=== PATIENT | male | born 1980 | race Caucasian/White ===

== ENCOUNTER 2019-04-19 18:45 | Observation (INO) ==
--- NOTE | 2019-04-19 19:23 | PROVIDER DOCUMENTATION ---
HPI-Chest Pain - General Chief Complaint: Chest Pain Stated Complaint: CHEST PAIN Time Seen by Provider: 04/19/19 19:12 Source: patient Allergies/Adverse Reactions: Patient Allergies Allergy/AdvReac Type Severity Reaction Status Date / Time Penicillins Allergy ANAPHYLAXIS Verified 04/19/19 21:00 Sulfa (Sulfonamide Allergy Unknown Verified 04/19/19 21:00 Antibiotics) - History of Present Illness-CP Nature of Presenting Problem: [id number] presents to the ER with c/o chest pain. 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 He denies any SOB or radiation. He states he has these episodes from "time to time" due to anxiety. He states he has been very "stressed out" from working 2 jobs. He denies any medical history, he is a smoker. Location: reports: central Chest Pain Radiation: reports: no radiation Severity in ED: moderate Onset/Duration: abrupt, just prior to arrival Timing: still present Associated Symptoms: reports: denies symptoms Similar Symptoms Previously?: Yes Recently Seen Here or By Another Healthcare Provider: No Review of Systems - Adult - REVIEW OF SYSTEMS - ADULT Constitutional: reports: see HPI. denies: chills, fever Eyes: reports: no symptoms reported Ears, Nose, Mouth & Throat: reports: no symptoms reported. denies: ear pain, epistaxis Cardiovascular: reports: see HPI, chest pain. denies: edema, orthopnea, palpitations, poor circulation, syncope Respiratory: reports: no symptoms reported. denies: cough, dyspnea on exertion, shortness of breath, wheezing Gastrointestinal: reports: no symptoms reported. denies: see HPI, constipation, nausea, vomiting Genitourinary: reports: no symptoms reported Musculoskeletal: reports: no symptoms reported. denies: back pain Integumentary: reports: no symptoms reported Neurological: reports: no symptoms reported. denies: dizziness/vertigo, seizure, syncope Psychiatric: reports: see HPI, anxiety, emotional problems, panic attacks Endocrine: reports: no symptoms reported Hematologic/Lymphatic: reports: no symptoms reported Allergic/Immunologic: reports: no symptoms reported All Other Systems: Reviewed and Negative Past History - Adult - PAST MEDICAL HISTORY-ADULT Review of Records: reports: Old Records Reviewed, Nursing Assessment Review, Medications Reviewed, Social history reviewed & non-contributory. Major Childhood Illnesses: reports: denies history Cardiovascular: reports: denies history Respiratory: reports: denies history Gastrointestinal: reports: denies history Obstetrical/Gynecological: reports: denies history Genitourinary: reports: denies history Musculoskeletal: reports: denies history Neurological: reports: denies history Psychiatric: reports: anxiety Endocrine/Immune: reports: denies history Other Conditions: reports: denies history - IMMUNIZATION STATUS Childhood Immunizations: See Nurse Assessment Flu Vaccine: See Nurse Assessment - FAMILY HISTORY Family History: reviewed, not pertinent - SOCIAL HISTORY Smoking: cigarettes, greater than 1 pack/day Provider spent 3-5 mins advising pt. on dangers of tobacco.: Discussed manners to quit use, and f/u contacts for add'l counseling. Substance Use: alcohol Alcohol Use Frequency: occasionally Living Situation: alone Physical Exam-General - PHYSICAL EXAM-ADULT Initial Vital Signs Reviewed: Yes - CONSTITUTIONAL General Appearance: alert, no apparent distress - EYES Eyes: PERRL/EOMI, pink conjunctivae - HEAD, EARS, NOSE, MOUTH & THROAT HENMT: normocephalic/atraumatic, moist mucous membranes, normal ENT inspection, TMs normal - NECK Neck: non-tender, full range of motion, supple, normal inspection - RESPIRATORY Respiratory: chest non-tender, lungs clear, normal breath sounds - CARDIOVASCULAR Cardiovascular: normal peripheral pulses, regular rate, rhythm - GASTROINTESTINAL (ABDOMEN) Abdominal Exam: normal bowel sounds, non tender, soft - LYMPHATIC Lymphatic: no adenopathy - MUSCULOSKELETAL Back Exam: normal inspection, no CVA tenderness, no vertebral tenderness Extremity: normal range of motion, non-tender, normal gait, normal inspection Peripheral Pulses: radial (R): 2+, radial (L): 2+, dorsalis-pedis (R): 2+, dorsalis-pedis (L): 2+ - SKIN Integumentary: normal color, normal turgor, warm/dry - 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, grossly normal, no motor/sensory deficits - PSYCHIATRIC Psych/Mental Status: oriented x 3, disheveled - HEART Score HEART Score: History: Moderately Suspicious HEART Score: ECG: Normal HEART Score: Age: < or = 45 Years HEART Score: Risk Factors for Atherosclerotic Disease: > or = 3 Risk Factors or History of Atherosclerotic Disease HEART Score: Troponin: < or = Normal Limit Total HEART Score:: 3 Progress - PLAN OF CARE/RESULTS Progress/Plan/Lab Results: Vital Signs - 8 hr 08/27/19 19:10 Temperature 98 F Pulse Rate 81 Respiratory Rate 18 Blood Pressure 136/92 O2 Sat by Pulse Oximetry 100 Laboratory Results - last 24 hr 04/19/19 04/19/19 04/19/19 19:03 19:03 19:03 WBC 9.04 RBC 5.27 Hgb 15.2 Hct 43.6 MCV 82.7 MCH 28.8 MCHC 34.9 RDW Std Deviation 12.6 Plt Count 252 MPV 11.5 H Immature Gran % (Auto) 0.6 H Neut % (Auto) 64.2 Lymph % (Auto) 28.5 [place] % (Auto) 5.3 Eos % (Auto) 1.1 Baso % (Auto) 0.3 Immature Gran # (Auto) 0.05 H Neut # (Auto) 5.80 Lymph # (Auto) 2.58 [place] # (Auto) 0.48 Eos # (Auto) 0.10 Baso # (Auto) 0.03 Sodium 128 L Potassium 3.7 Chloride 94 L Carbon Dioxide 21 L Anion Gap 13 BUN 14 Creatinine 0.7 Estimated GFR/1.73 m2 > 60 BUN/Creatinine Ratio 20 Glucose 421 H* Calculated Osmolality 276 Calcium 9.1 Total Bilirubin 0.32 AST 12 ALT 14 Alkaline Phosphatase 100 Creatine Kinase 76 Troponin T Total Protein 6.5 Albumin 3.9 Globulin 2.6 Albumin/Globulin Ratio 1.5 TSH Free T4 Urine Source Urine Color Urine Turbidity Urine pH Ur Specific [place] Urine Protein Ur Glucose (Stick) Ur Ketones (Stick) Urine Blood Urine Nitrite Urine Bilirubin Urobilinogen Dipstick Urine Leukocytes Urine WBC (Auto) Urine RBC (Auto) U Epithel Cells (Auto) Urine Bacteria (Auto) Urine Opiates Screen Ur Oxycodone Screen Ur Methadone, Qual Ur Barbiturates Screen Ur Phencyclidine Scrn Ur Amphetamines Screen U Benzodiazepines Scrn Urine Cocaine Screen U Cannabinoids Screen 04/19/19 04/19/19 04/19/19 19:03 19:03 20:35 WBC RBC Hgb Hct MCV MCH MCHC RDW Std Deviation Plt Count MPV Immature Gran % (Auto) Neut % (Auto) Lymph % (Auto) [place] % (Auto) Eos % (Auto) Baso % (Auto) Immature Gran # (Auto) Neut # (Auto) Lymph # (Auto) [place] # (Auto) Eos # (Auto) Baso # (Auto) Sodium Potassium Chloride Carbon Dioxide Anion Gap BUN Creatinine Estimated GFR/1.73 m2 BUN/Creatinine Ratio Glucose Calculated Osmolality Calcium Total Bilirubin AST ALT Alkaline Phosphatase Creatine Kinase Troponin T < 0.010 Total Protein Albumin Globulin Albumin/Globulin Ratio TSH 1.76 Free T4 0.86 L Urine Source CLEAN CATCH Urine Color YELLOW Urine Turbidity CLEAR Urine pH 5.5 Ur Specific Hum[place] 1.035 Urine Protein NEGATIVE Ur Glucose (Stick) >1000 A Ur Ketones (Stick) NEGATIVE Urine Blood NEGATIVE Urine Nitrite NEGATIVE Urine Bilirubin NEGATIVE Urobilinogen Dipstick NORMAL Urine Leukocytes NEGATIVE Urine WBC (Auto) <10 Urine RBC (Auto) <10 U Epithel Cells (Auto) <10 Urine Bacteria (Auto) NEGATIVE Urine Opiates Screen Ur Oxycodone Screen Ur Methadone, Qual Ur Barbiturates Screen Ur Phencyclidine Scrn Ur Amphetamines Screen U Benzodiazepines Scrn Urine Cocaine Screen U Cannabinoids Screen 04/19/19 20:56 WBC RBC Hgb Hct MCV MCH MCHC RDW Std Deviation Plt Count MPV Immature Gran % (Auto) Neut % (Auto) Lymph % (Auto) [place] % (Auto) Eos % (Auto) Baso % (Auto) Immature Gran # (Auto) Neut # (Auto) Lymph # (Auto) [place] # (Auto) Eos # (Auto) Baso # (Auto) Sodium Potassium Chloride Carbon Dioxide Anion Gap BUN Creatinine Estimated GFR/1.73 m2 BUN/Creatinine Ratio Glucose Calculated Osmolality Calcium Total Bilirubin AST ALT Alkaline Phosphatase Creatine Kinase Troponin T Total Protein Albumin Globulin Albumin/Globulin Ratio TSH Free T4 Urine Source Urine Color Urine Turbidity Urine pH Ur Specific Hum[place] Urine Protein Ur Glucose (Stick) Ur Ketones (Stick) Urine Blood Urine Nitrite Urine Bilirubin Urobilinogen Dipstick Urine Leukocytes Urine WBC (Auto) Urine RBC (Auto) U Epithel Cells (Auto) Urine Bacteria (Auto) Urine Opiates Screen NONE DETECTED Ur Oxycodone Screen NONE DETECTED Ur Methadone, Qual NONE DETECTED Ur Barbiturates Screen NONE DETECTED Ur Phencyclidine Scrn NONE DETECTED Ur Amphetamines Screen PRESUMPTIVE POSITIVE A U Benzodiazepines Scrn NONE DETECTED Urine Cocaine Screen NONE DETECTED U Cannabinoids Screen PRESUMPTIVE POSITIVE A Orders Category Date Time Status Nursing- Obtain EKG ONCE Care 04/19/19 19:16 Active CHEST-2 VIEWS [RAD] Stat Exams 04/19/19 19:16 Completed CBC WITH ELECTRONIC DIFF [HEME] Stat Lab 04/19/19 19:03 Completed CK PROFILE [SP CHEM] Stat Lab 04/19/19 19:03 Completed COMPREHENSIVE METABOLIC PANEL [CHEM] Stat Lab 04/19/19 19:03 Completed FREE T4 Stat Lab 04/19/19 19:03 Completed TROPONIN T Stat Lab 04/19/19 19:03 Completed TSH Stat Lab 04/19/19 19:03 Completed URINALYSIS W/POSS RFLX CULT [URINALYSIS] Stat Lab 04/19/19 20:35 Completed URINE DRUG SCREEN Stat Lab 04/19/19 20:56 Completed Insulin Human Regular [Humulin R] Med 04/19/19 20:36 Discontinued 4 unit SUBQ NOW ONE EKG [EKG] Stat Ther 04/19/19 19:16 Draft Mother at the bedside. 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 She also reports patient is non-insulin dependant diabetic. Records have been requested from [facility]. Result Diagrams: 04/19/19 19:03 04/19/19 19:03 - REASSESSMENT Reassessment #1 Time Reassessed: 20:39 Status: improving Reassessment Comment: no CP at present - EKG 1 Time of EKG reading by physician:: 18:57 EKG Read and Signed by:: Christian Reddy EKG Interpretation (*Must complete 3 of following elements*): Abnormal Rate: 83 Rhythm: NSR [place]: left QRS: other (Septal infarct, age undetermined) RI Interval: normal ST Wave: normal Prior EKG Comparison: no prior EKG - XRAY 1 XRAY Study: Chest Impression: Normal (FINDINGS: Heart size is normal. The lungs appear clear. There is no pleural effusion or pneumothorax identified. IMPRESSION: No evidence of acute disease.), See EMR Report - CONSULTS/PCP/HOSPITALIST Notification #1 *Consult/PCP/Hospitalist*: Dr Collado Time Discussed: 21:42 Reason/Comments: CP Consult Disposition: Admit Departure - Departure Date of Disposition Decision: 04/19/19 Time of Disposition Decision: 21:42 DIAGNOSIS: Chest pain Qualifiers: Chest pain type: unspecified Qualified Code(s): R07.9 - Chest pain, unspecified Disposition: ADMITTED INPATIENT 09 Certified Medical Emergency: Emergent Condition: Critical Additional Freetext Instructions: ED Follow Up Instructions: You have been treated by a care provider in the Emergency Department. These instructions are being provided to you so you can have an understanding of how to care for yourself upon discharge. Upon discharge from the Emergency Department, you are responsible for making arrangements for follow-up care by a physician of your choice. Take all prescribed medications as directed. Return to the Emergency Department immediately for any new or worsening symptoms. You may call the Physician Referral phone number at [phone] to obtain a list of Physicians who are taking new patients. Referrals and Follow-Ups: None,PCP [Primary Care Provider] - - Critical Care Note This patient required my direct & personal management of CC.: No Attestation - Physician/ FORD Attestation Patient care was provided by Advanced Practice Provider:: Yes Advanced Practice Provider:: Paul Cochran Advanced Practice Provider documentation review:: The Mid-level provider documentation, treatment plan and medical decision making was reviewed by the physician who agrees with all treatment and medical decision making by the MLP. The physician spent face to face time with patient:: No Advanced Practice Provider documentation review:: Supervising physician onsite and consulted in the evaluation and care of this patient. The physician did not have a face to face encounter with the patient.
--- NOTE | 2019-04-19 19:38 | Diag Imaging Result Doc PS360 ---
EXAM: CHEST-2 VIEWS - 04/19/2019 HISTORY: cp TECHNIQUE: Chest two views COMPARISON: None. FINDINGS: Heart size is normal. The lungs appear clear. There is no pleural effusion or pneumothorax identified. IMPRESSION: No evidence of acute disease. Electronically signed by Juan Decker 04/19/2019 7:35 PM
[2019-04-19 19:41] LABS: HEMATOCRIT 43.6 % (42.0-52.0); HEMOGLOBIN 15.2 g/dL (14.0-18.0); MCH 28.8 PG (27-31); MCV 82.7 FL (81-99); RBC 5.27 XMIL (4.7-6.1); WBC 9.04 X1000 (4.8-10.8)
[2019-04-19 19:42] LABS: BASO# 0.03 X1000 (0.0-0.2); BASO% 0.3 % (0.0-0.8); EOS% 1.1 % (0.0-10.0); IMM GRAN# 0.05 X1000 (0.0-0.04); IMM GRAN% 0.6 % (0.0-0.5); LYMPH# 2.58 X1000 (1.2-3.4); LYMPH% 28.5 % (20.5-51.1); MCHC 34.9 g/dL (33-37); MONO# 0.48 X1000 (0.11-0.59); MONO% 5.3 % (1.7-9.3); MPV 11.5 FL (7.4-10.4); NEUT% 64.2 % (42.2-75.2); PLT 252 X1000 (130-400); RDW 12.6 % (11.5-14.5)
--- NOTE | 2019-04-19 19:47 | EKG Report ---
Test Performed on : 04/19/2019 6:57:39 PM Test Reason : cp Blood Pressure : / mmHG Vent. Rate : 083 BPM Atrial Rate : 083 BPM P-R Int : 160 ms QRS Dur : 090 ms QT Int : 366 ms P-R-T Axes : 052 -40 037 degrees QTc Int : 430 ms Normal sinus rhythm. Left axis deviation Septal infarct , age undetermined Abnormal ECG No previous ECGs available Unconfirmed Result
[2019-04-19 20:34] LABS: FREE T4 0.86 ng/dL (0.93-1.70); TSH 1.76 uIUmL (0.27-4.20)
[2019-04-19] MEDS ORDERED: HUMULIN R SUBQ ONE (20:36)
[2019-04-19 20:38] LABS: AGAP 13; ALB/GLOB RATIO 1.5; ALBUMIN 3.9 g/dL (3.5-5.0); ALKALINE PHOSPHATASE 100 U/L (32-122); BUN 14 mg/dL (8-22); CALCIUM 9.1 mg/dL (8.8-10.2); CHLORIDE 94 mmol/L (98-107); COSMO 276; CREATININE 0.7 mg/dL (0.7-1.2); ESTIMATED GFR > 60; GLUCOSE 421 mg/dL (70-104); GOT 12 U/L (10-34); GPT 14 U/L (10-44); POTASSIUM 3.7 mmol/L (3.5-5.1); SODIUM 128 mmol/L (136-145); TCO2 21 mmol/L (25-35); TOTAL BILIRUBIN 0.32 mg/dL (0.20-1.00); TOTAL PROTEIN 6.5 g/dL (6.3-8.3)
[2019-04-19 20:43] LABS: URINE SOURCE CLEAN CATCH
[2019-04-19 20:45] LABS: BILIRUBIN URINE NEGATIVE (NEGATIVE); BLOOD URINE NEGATIVE (NEGATIVE); COLOR YELLOW; GLUCOSE URINE >1000 mg/dL (NEGATIVE); KETONE URINE NEGATIVE (NEGATIVE); LEUKOCYTES URINE NEGATIVE (NEGATIVE); NITRITE URINE NEGATIVE (NEGATIVE); PH URINE 5.5; PROTEIN URINE NEGATIVE (NEGATIVE); SP GRAVITY URINE 1.035; TURBIDITY URINE CLEAR (CLEAR); UR EPITHELIAL CELLS <10 /HPF (<10); URINE BACTERIA NEGATIVE /HPF; URINE RBC <10 /HPF (<10); URINE WBC <10 /HPF (<10); UROBILINOGEN URINE NORMAL (NORMAL)
[2019-04-19 21:21] LABS: UR AMPHETAMINES QUAL PRESUMPTIVE POSITIVE (NONE DETECT); UR BARBITUATES QUAL NONE DETECTED (NONE DETECT); UR BENZODIAZEPIN QUAL NONE DETECTED (NONE DETECT); UR CANNABINOIDS QUAL PRESUMPTIVE POSITIVE (NONE DETECT); UR COCAINE QUAL NONE DETECTED (NONE DETECT); UR METHADONE QUAL NONE DETECTED (NONE DETECT); UR OPIATES QUAL NONE DETECTED (NONE DETECT); UR OXYCODONE QUAL NONE DETECTED (NONE DETECT); UR PCP QUAL NONE DETECTED (NONE DETECT)
--- NOTE | 2019-04-19 22:37 | HISTORY AND PHYSICAL ---
REASON FOR ADMISSION: Chest pain. HISTORY OF PRESENT ILLNESS: Mr. Manuel Moss is a 38-year-old male with a past medical history of cocaine abuse resulting in an GA. He hails actually from [facility]. His mother brought him to [place] to keep away from the drug culture in [facility]. 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 He said the pain is stabbing radiating to back associated with shortness of breath and lightheadedness, but no diaphoresis, no palpitations. He admits to having some nausea. No cough. No antecedent history of cough, fever, chills, leg swelling, PND, or orthopnea. Since he has been in the ER, he says his pain has resolved. He had a similar episode 2 weeks ago and this spontaneously resolved in less than a day. He cannot say if the pain is associated with exertion but he knows it has been present for several hours regardless of exertion. REVIEW OF SYSTEMS: Twelve system review was done. Positive findings per HPI. Admits to using some marijuana and methamphetamines in the last couple of days. The patient admits to having polyuria and polydipsia. ALLERGIES: Allergic to sulfur and penicillin. HOME MEDICATIONS: Metformin even though the patient denies being a diabetic. SOCIAL HISTORY: Does not drink, but smokes about a pack a day. Uses marijuana amphetamines recreationally. FAMILY HISTORY: No first-degree relatives with diabetes or heart disease. SURGICAL HISTORY: Had appendectomy. LABORATORY WORK: EKG shows for possible Q-waves in V1 only, left axis deviation, normal sinus rhythm. Otherwise, no gross findings suggestive of ischemia or injury pattern. Chest film showed no acute disease noted. White count normal , platelets 252,000, glucose 421, BUN 14, creatinine 0.7. Positive for amphetamines and cannabinoids in the urine UDS. Urinalysis greater than 1000 glucose. Fortunately no protein. HOME MEDICATION: Only metformin 1000 mg b.i.d. is noted. PHYSICAL EXAMINATION: VITAL SIGNS: Blood pressure is 136/92, heart rate 81, respirations 18, temperature is 98 degrees, 100% on room air. GENERAL: A middle-aged man who is alert and oriented to person, time with normal mood and affect. HEENT: Head is normocephalic, atraumatic. Eyes, DILAN, EOMI. He is anicteric and not pale. ENT and oropharynx exam is grossly normal. NECK: Supple. No JVD or carotid bruit. No thyromegaly. CHEST: Clear to auscultation. Good air entry both lung bullock. CARDIOVASCULAR: First and 2nd sounds heard. No gallops, murmurs, rubs. Rhythm is regular. ABDOMEN: Full, soft, not tender. No mass or organomegaly. Bowel sounds are normal. RECTAL: Deferred at this time. EXTREMITIES: Good distal pulse volumes which are symmetrical, regular. No edema, clubbing or peripheral cyanosis. NEUROLOGIC EXAM: No gross focal deficits. SKIN: Intact. No breakdown, lesions, erythema. MUSCULOSKELETAL: Exam is grossly normal. ASSESSMENT: 1. Chest pain syndrome. 2. Type 2 diabetes, uncontrolled. 3. Polysubstance abuse. PLAN: We will keep patient NPO pending evaluation by Dr. Varner, radio engineering teacher lubrication equipment servicer. Echocardiogram was ordered. I will defer to him regarding need for noninvasive testing. The patient's heart score is somewhere around 3 to 4. We will continue aspirin. Start him on statins. Start him on insulin therapy for his poorly controlled diabetes. I strongly suspect the patient will need to go home on, at very least, 1 shot a day of long-acting insulin at the very least, or at least 70/30 insulin. A1c lipid panel needs to be followed. We will do serial cardiac enzymes to ensure the patient does not develop an ischemic event. cc: Alta Collado MD MTD
[2019-04-19] MEDS ORDERED: ZOFRAN IV PRN (23:48)
[2019-04-19] MEDS ORDERED: LIPITOR PO SCH (23:48)
[2019-04-19] MEDS ORDERED: TYLENOL PO PRN (23:48)
[2019-04-19] MEDS ORDERED: NITROGLYCERIN SL PRN (23:48)
[2019-04-19] MEDS ORDERED: LANTUS INSULIN SUBQ ONE (23:48)
[2019-04-19] MEDS ORDERED: NS 1,000 ML IV ONE (23:48)
[2019-04-20] MEDS: LOVENOX SUBQ SCH ×2 (00:13→02:10)
[2019-04-20] MEDS: HUMALOG SUBQ SCH ×4 (05:44→17:13)
[2019-04-20 05:59] LABS: CHOLESTEROL 184 mg/dL (0-200); HDL 35 mg/dL (35-55); LDL 72 mg/dL; TRIGLYCERIDES 385 mg/dL (39-160); VLDL 77 mg/dL
[2019-04-20] MEDS ORDERED: PRILOSEC PO SCH (07:00)
--- NOTE | 2019-04-20 07:21 | EKG Report ---
Test Performed on : 04/20/2019 06:22:58 AM Test Reason : CP Blood Pressure : / mmHG Vent. Rate : 074 BPM Atrial Rate : 074 BPM P-R Int : 162 ms QRS Dur : 098 ms QT Int : 386 ms P-R-T Axes : 060 -32 042 degrees QTc Int : 428 ms Normal sinus rhythm. Left axis deviation Incomplete right bundle branch block Abnormal ECG When compared with ECG of 19-APR-2019 18:57, (Unconfirmed) No significant change was found Confirmed by Cheryl Bañuelos MD ([id number]) on 04/20/2019 12:02:35 PM
[2019-04-20] MEDS ORDERED: LANTUS INSULIN SUBQ SCH (09:00)
[2019-04-20] MEDS ORDERED: ASPIRIN PO SCH (09:00)
--- NOTE | 2019-04-20 09:00 | PROGRESS NOTE ---
DATE: 04/20/2019 SUBJECTIVE: Mr. Moss had a pretty good night. No further chest pain. He described the pain as on the right side and more sharp in nature. OBJECTIVE: Temperature 97.9 degrees, pulse 83, respirations 18, blood pressure 139/82. Pupils are equal and round. Lungs are clear in all lung bullock. Cardiovascular Examination: Regular rhythm and rate without murmur or S3. Abdomen is soft. Skin is warm and dry. ASSESSMENT AND PLAN: 1. Chest pain. History, he says, of a myocardial infarction a couple of years ago. Dr. Varner is his glue spreading machine operator. Echocardiogram was ordered and he will determine the need for noninvasive testing. 2. Diabetes mellitus type 2. 3. History of polysubstance abuse. 4. He is on Lipitor 40 mg at bedtime, aspirin 325 mg a day, Lantus insulin 25 units subcutaneous daily, getting normal saline at 150 mL an hour. Note, his cardiac enzymes are negative. Troponin less than 0.01, two sets. Hemoglobin A1c was 12, indicating that the control has been poor so we will follow pattern of sugars while he is here. cc: Hilario Tran MD
--- NOTE | 2019-04-20 11:28 | CARDIOLOGY CONSULTATION ---
DATE: 04/20/2019 REASON FOR CONSULTATION: Cardiology was consulted for chest pain. HISTORY OF PRESENT ILLNESS: A 38-year-old, gentleman with past medical history of cocaine abuse. He hails from [place], [place]. He was brought in by his mother back to [place]. Patient comes with complaints of having chest pain, which he describes as stabbing in character associated with some shortness of breath and lightheadedness. There is no jodi syncope. REVIEW OF SYSTEM: General: A 14 point review of systems was done. Gastrointestinal: There is no history of nausea, vomiting, diarrhea. There is no history of hematemesis or melena. Central nervous system: No focal weakness to suggest a CVA or TIA. Genitourinary system: There is no dysuria or hematuria. PAST MEDICAL HISTORY: History of cocaine abuse. The patient states that resulted in a MO; no records available at the present time. HOME MEDICATIONS: Metformin; patient says he is not a diabetic. SOCIAL HISTORY: Patient does not drink. History of using recreational marijuana and cocaine in the past. PHYSICAL EXAMINATION: Vital Signs: On examination, blood pressure was 136/92. Cardiovascular System: Normal jugular venous pressure. There is no thyromegaly. No carotid bruit. First and second heart sounds were heard. There is no S3, S4, or gallop. Respiratory System: Normal air entry. There is no crepitations or rhonchi. Abdomen: Soft, nontender. There was no guarding or rigidity. Bowel sounds were heard. Central nervous system: Alert and oriented. Was moving all 4 extremities. Extremities: Examination of extremities revealed no pedal edema. HEENT: Atraumatic, normocephalic. Pupils were equal and reacting to light. ASSESSMENT AND PLAN: Mr. Manuel Moss is a 38-year-old, gentleman with history of drug abuse in the past. He comes in with complaints of chest pain. He has been ruled out for myocardial infarction by cardiac enzymes. We will get an echocardiogram to assess cardiac and valvular function. We will get a Cardiolite stress test to assess for and rule out ischemia. As far as diabetes and blood sugars are concerned, will defer plan by the hospitalist service. Thank you for the consult. We will follow hospital course. cc: Alex Grajeda MD
--- NOTE | 2019-04-20 15:04 | Diag Imaging Result Document ---
PROCEDURE NAME: MYOCARDIAL PERF SCAN, STR/REST - 04/20/2019 INDICATION: Chest pain. PROCEDURES PERFORMED: 1. Rafiq protocol stress. 2. One-day stress rest myocardial perfusion imaging. PROCEDURE IN DETAIL: Mr. Moss was brought to the nuclear laboratory and had a resting study with injection of 10.9 mCi of technetium-99m sestamibi with the usual imaging protocol utilized. He subsequently was brought back and had a Rafiq protocol stress, and at peak stress had injection of 31.5 mCi of technetium-99m sestamibi with the usual imaging protocol utilized. FINDINGS: RAFIQ PROTOCOL STRESS RESULTS: 1. Baseline EKG shows sinus rhythm, poor R-wave progression. 2. The patient exercised for a total of 10-1/2 minutes, achieving peak heart rate of 160, which was 87% of age-predicted max. He achieved 12.5 METS and stage IV of the Rafiq protocol. Exercise capacity was 93% of age and sex-predicted exercise capacity. 3. Appropriate blood pressure response to exercise. 4. Test was terminated due to fatigue. 5. No anginal complaints occurred during the course of the study. 6. No ischemic-related EKG changes or significant arrhythmias. PERFUSION IMAGING RESULTS: 1. No evidence of transient ischemic dilatation. TID ratio is 1.09. 2. There is evidence of abnormal extracardiac uptake on the rest images, which appears to be contamination on the gown in the chest wall area. 3. Perfusion imaging demonstrates a small-sized, mild intensity, fixed defect at the apex, likely suggestive of apical thinning artifact. There is no evidence of ischemic-related changes. 4. Normal ejection fraction of 71%. End-diastolic volume 86. End-systolic volume 25. Normal wall motion. cc: MD Clara Stockton PA
[2019-04-20 15:20] VITALS: BP 134/77
--- NOTE | 2019-04-20 16:04 | DISCHARGE SUMMARY ---
ADMISSION DATE: 04/19/2019 DISCHARGE DATE: 04/20/2019 HISTORY: He presented with chest pain. He has no primary care physician. 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 He is actually from [place] I think. His mother brought him to [place] to keep him away from the drug culture in [place]. 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 He said his pain was stabbing, radiating back to his back, shortness of breath, lightheadedness, but no diaphoresis. No palpitations. He admits to having some nausea. No cough. No antecedent history of cough, fever, chills, leg swelling, PND, or orthopnea. Since he has been in the emergency room, the pain has resolved. He had a similar episode 2 weeks ago that spontaneously resolved in less than a day. He cannot say that the pain is associated with exertion, but he knows it has been present for several hours regardless of exertion. So, he was admitted with chest pain, history of diabetes mellitus type 2, appears to be uncontrolled, and polysubstance abuse. His enzymes were negative. His myocardial perfusion scan on 04/20 today showed no evidence of transient ischemic dilatation. There was evidence of abnormal extracardiac uptake, and the rest images appears to be contamination in the gown in the chest wall area. Perfusion imaging demonstrated a small-sized mild intensity, fixed defect at the apex likely suggesting apical thinning artifact. There is no evidence of ischemic related changes, and normal ejection fraction of 71%. The patient wanted to go home so we will discharge him home. He will be on Lipitor 40 mg a day. He takes his Lantus insulin 25 units subcutaneous daily. I think actually he is on metformin 1000 mg b.i.d. I am going to keep him on the metformin, and have him see a primary care physician about starting on insulin. It looks like his discharge orders will be metformin 100 mg b.i.d. I will give him a prescription for Lipitor 40 mg a day and taking aspirin 81 mg daily. Looking at his hemoglobin A1c, it was 12, so I do encourage follow-up with primary care physician. cc: Hilario Tran MD
--- NOTE | 2019-04-20 16:07 | ECHO REPORT ---
ORDER DATE: 04/19/2019 INDICATION: Chest pain. FINDINGS: 1. The right atrium appears normal size at 3.4 cm. 2. Mild tricuspid regurgitation. 3. Normal RV size and systolic function. 4. No significant pulmonic insufficiency. 5. Normal left atrial size with a volume index of 18. 6. No mitral valve prolapse. Mild mitral regurgitation. 7. Normal LV size, end-diastolic dimension of 4.8. Normal wall thicknesses with a posterior and interventricular septal wall thickness of 1.1 cm each. Normal LV systolic function. The estimated EF appears to be 60% to 65% with normal wall motion. 8. Aortic valve opens well. It is trileaflet. There is no clear evidence of stenosis or insufficiency. 9. Aorta appears normal in visualized segments. 10. No pericardial effusion seen. cc: MD Alta Stockton MD
== END 2019-04-20 16:50 | disposition home or self-care (01) ==
LOC: SUPCPDRO → 2N 18:45 → ED 18:45 → SUATTDRO 23:21
PROVIDERS: ATTEND Emergency Medicine